=== PATIENT | female | born 1950 | race Caucasian/White ===

== ENCOUNTER → 2016-06-15 | Outpatient (CLI) | payer BC | END | disposition home or self-care (01) | LOC: LABWHC1 16:35 | PROVIDERS: ATTEND Internal Medicine Endocrinology, Diabetes & Metabolism | DX: E03.9 Hypothyroidism, unspecified (principal) | CPT/HCPCS: 36415; 84443 ==

== ENCOUNTER → 2017-02-13 | Outpatient (CLI) | payer BC | END | disposition home or self-care (01) | LOC: LABWHC1 15:33 | PROVIDERS: ATTEND Internal Medicine Endocrinology, Diabetes & Metabolism | DX: E03.8 Other specified hypothyroidism (principal) | CPT/HCPCS: 36415; 84443 ==

== ENCOUNTER → 2018-03-25 | Outpatient (CLI) | payer BC ==
--- NOTE | 2018-03-26 13:12 | MM ---
Reason for exam: screening (asymptomatic). Last mammogram was performed 2 years and 4 months ago. History: Patient is postmenopausal. Taking unspecified hormones for 3 years beginning at age 53. Physical Findings: A clinical breast exam by your physician is recommended on an annual basis and results should be correlated with mammographic findings. MG 3D Screening Mammo W/Cad Bilateral CC and MLO view(s) were taken. Prior study comparison: November 28, 2015, bilateral MG 3d screening mammo w/cad. December 09, 2009, bilateral digital screening mammogram. There are scattered fibroglandular densities. No significant changes when compared with prior studies. ASSESSMENT: Negative, BI-RAD 1 RECOMMENDATION: Routine screening mammogram of both breasts in 1 year.
== END | disposition home or self-care (01) ==
LOC: RADMAMWWP 09:44
PROVIDERS: ATTEND Family Medicine
DX: Z12.31 Encounter for screening mammogram for malignant neoplasm of breast (principal)
CPT/HCPCS: 77063; 77067

== ENCOUNTER → 2020-01-13 | Outpatient (CLI) | payer BC | END | disposition home or self-care (01) | LOC: LABWHC1 11:07 | PROVIDERS: ATTEND Family Medicine | DX: R05 Cough (principal) | CPT/HCPCS: U0003; C9803 ==

== ENCOUNTER 2020-04-11 13:31 | Emergency (ER) | payer BC, MEDICARE ==
[2020-04-11 13:35] VITALS: RESP 18
--- NOTE | 2020-04-11 13:53 | ED ---
Lower Extremity Injury HPI <Abdulaziz Jimenez - Last Filed: 04/11/20 15:30> - General Source: patient, EMS, RN notes reviewed Mode of arrival: EMS Limitations: no limitations <Michael Romeo - Last Filed: 04/11/20 15:52> - General Chief Complaint: Extremity Injury, Lower Stated Complaint: Fall Time Seen by Provider: 04/11/20 13:37 - History of Present Illness Initial Comments: this a 69-year-old female presents emergency department via EMS chief complaint of right ankle injury. Patient states she slipped on her socks in a rug down some stairs. Patient has a right ankle injury no other injuries noted no head injury no loss conscious. Patient states he looks slightly deformed and unable to move it. Patient had a prior left ankle injury no prior right ankle injuries. (Michael Romeo) - Related Data Home Medications Medication Instructions Recorded Confirmed Cyanocobalamin [Vitamin B-12 1,000 mcg SQ QMONTH 01/26/16 01/26/16 Injection] Levothyroxine Sodium [Synthroid] 75 mcg PO DAILY 01/26/16 01/26/16 Previous Rx's Medication Instructions Recorded HYDROcodone/APAP 5-325MG [[place] 5] 1 each PO Q4HR PRN #20 tab 01/26/16 Ibuprofen [Motrin] 600 mg PO Q6HR PRN #20 tab 01/26/16 Allergies Allergy/AdvReac Type Severity Reaction Status Date / Time Sulfa (Sulfonamide Allergy Rash/Hives Verified 04/11/20 13:35 Antibiotics) Review of Systems ROS Other: All systems not noted in ROS Statement are negative. <Abdulaziz Jimenez - Last Filed: 04/11/20 15:30> ROS Other: All systems not noted in ROS Statement are negative. <Michael Romeo - Last Filed: 04/11/20 15:52> ROS Statement: Those systems with pertinent positive or pertinent negative responses have been documented in the HPI. Past Medical History Past Medical History: Thyroid Disorder History of Any Multi-Drug Resistant Organisms: None Reported Past Surgical History: Tonsillectomy Past Psychological History: No Psychological Hx Reported Past Alcohol Use History: Occasional Past Drug Use History: None Reported <Michael Romeo - Last Filed: 04/11/20 15:52> General Exam Limitations: no limitations General appearance: alert, in no apparent distress Head exam: Present: atraumatic, normocephalic, normal inspection Respiratory exam: Present: normal lung sounds bilaterally. Absent: respiratory distress, wheezes, rales, rhonchi, stridor Cardiovascular Exam: Present: regular rate, normal rhythm, normal heart sounds. Absent: systolic murmur, diastolic murmur, rubs, gallop, clicks Extremities exam: Present: other (right ankle there is deformity noted, pulses equal bilaterally, moderate tenderness with palpation diffusely) <Michael Romeo - Last Filed: 04/11/20 15:52> Course <Abdulaziz Jimenez - Last Filed: 04/11/20 15:30> Vital Signs 04/11/20 04/11/20 04/11/20 13:33 14:43 15:11 Temperature 97.8 F Pulse Rate 76 80 93 Respiratory 18 18 18 Rate Blood Pressure 202/95 181/89 173/96 O2 Sat by Pulse 99 97 910 H Oximetry 04/11/20 04/11/20 04/11/20 15:12 15:17 15:22 Temperature Pulse Rate 87 74 75 Respiratory 18 18 18 Rate Blood Pressure 137/76 135/101 146/80 O2 Sat by Pulse 100 100 100 Oximetry 04/11/20 04/11/20 15:27 15:32 Temperature Pulse Rate 72 76 Respiratory 18 18 Rate Blood Pressure 149/72 150/78 O2 Sat by Pulse 100 100 Oximetry - Reevaluation(s) Reevaluation #1: 04/11/20 15:30 Supervising: I pursued [id number] evaluation was her right ankle and is sustain a both bone distal right tib-fib fracture with posterior dislocation. Patient awake alert no other injuries reported. Patient had the right ankle reduced and splinted. I did perform IV sedation with propofol. Post reduction x-ray showed much improved alignment. Orthopedics will be consulted. I do agree with the assessment and plan. The post reduction exam reveals paced be awake alert oriented 3 no neurovascular deficit to the lower extremity and right. (Abdulaziz Jimenez) Procedures - Procedural Sedation Procedural Sedation Start Time: 15:11 Procedural Sedation Stop Time: 15:32 Indications: fracture/dislocation reduction ASA Class: II Mallampati Airway Score: 2 Preparation: playground monitor applied, pulse oximeter, capnometry used, supplemental O2 applied, reversal agents at bedside, suction/airway equipment at bedside, IV secured IV Propofol Dose (mgs): 65 Complications: none Patient Tolerated Procedure: well <Abdulaziz Jimenez - Last Filed: 04/11/20 15:30> - Orthopedic Joint Reduction Joint #1 Consent Obtained: written consent Side: right Joint Reduction Location: ankle Analgesia: procedural sedation Technique Used: traction/counter-traction, direct manipulation Post-Reduction Neuro Exam: intact Post-Reduction Vascular Exam: intact Post Reduction X-Ray Obtained: Yes Post Reduction X-Ray Results: reduced Splint Applied: Yes Patient Tolerated Procedure: well, no complications - Orthopedic Splinting/Casting Injury #1 Side: right Lower Extremity Injury Location: short leg, ankle Lower Extremity Immobilizer: posterior splint, synthetic pre-padded splint <Michael Romeo - Last Filed: 04/11/20 15:52> - Procedural Sedation Presedation Evaluation: Awake alert oriented 3 with evidence of deformity to the right lower extremity lateral rotation of the right foot with respect to the tib-fib. Proximal to this no evidence of any injury. After post reduction exam reveals good motor sensory vascular findings. (Abdulaziz Jimenez) Other Medications Used: IV Dilaudid (Abdulaziz Jimenez) Medical Decision Making <Michael Romeo - Last Filed: 04/11/20 15:52> - Medical Decision Making 69-year-old female presents emergency from for fall, right ankle injury. Patient is a trimalleolar fracture the right ankle with dislocation was reduced by me and Dr. Jimenez with procedural sedation. Patient's case discussed with Soo at orthopedics on-call for Dr. Shaw. Patient may be discharged in stable condition and will follow-up in office will be provided crutches advised suturing remain nonweightbearing. (Michael Romeo) Disposition <Abdulaziz Jimenez - Last Filed: 04/11/20 15:30> Is patient prescribed a controlled substance at d/c from ED?: No Time of Disposition: 15:52 <Michael Romeo - Last Filed: 04/11/20 15:52> Clinical Impression: Closed right trimalleolar fracture Disposition: HOME SELF-CARE Condition: Stable Instructions (If sedation given, give patient instructions): Ankle Fracture (ED) Additional Instructions: Please return to the Emergency Department if symptoms worsen or any other concerns. Referrals: Yaquelin Ledesma MD [Primary Care Provider] - 1-2 days Michael Shaw DO [Doctor of Osteopathic Medicine] - 1-2 days
[2020-04-11] MEDS ORDERED: PROPOFOL 10 MG/ML 20 ML VIAL IV STA (13:55)
[2020-04-11] MEDS ORDERED: SODIUM CHLORIDE 0.9% 500 ML 500 ML IV ONE (13:55)
--- NOTE | 2020-04-11 14:02 | XR ---
EXAMINATION TYPE: XR ankle limited RT DATE OF EXAM: 04/11/2020 CLINICAL HISTORY: Slip injury with pain. TECHNIQUE: Frontal and lateral images of the right ankle are obtained. COMPARISON: None. FINDINGS: There is acute transverse displaced transverse fracture through the medial malleolus with 10 mm fracture fragment. There is acute comminuted minimally displaced fracture through the lateral m alleolus. There is acute oblique intra-articular displaced fracture through the posterior malleolus w ith 1.9 cm fracture fragment. There is posterior translation of the talus with impaction relative to the distal tibia consistent with ankle mortise disruption. Mild/moderate associated soft tissue swell ing . IMPRESSION: There is acute displaced trimalleolar fracture with mortise disruption.
[2020-04-11] MEDS ORDERED: HYDROmorphone 0.5 MG/0.5 ML SYRINGE IVP STA (14:03)
[2020-04-11] MEDS ORDERED: ONDANSETRON 4 MG/2 ML VIAL IVP STA (14:03)
--- NOTE | 2020-04-11 15:33 | XR ---
EXAMINATION TYPE: XR ankle limited RT DATE OF EXAM: 04/11/2020 CLINICAL HISTORY: Reduction of displaced fracture. TECHNIQUE: Frontal and lateral images of the right ankle are obtained. COMPARISON: Right ankle x-ray earlier today.. FINDINGS: There is redemonstration of trimalleolar fractures with improved tibiotalar articulation a fter reduction. Persistent widening of the medial aspect ankle mortise. Overlying splint material is now present. IMPRESSION: There is improved alignment of displaced trimalleolar fractures with mortise disruption after reduction and splinting.
[2020-04-11] MEDS ORDERED: ACET/COD 300 MG/30 MG STARTER PACK 6 TAB BTL PO STA (15:52)
[2020-04-11 16:05] VITALS: BP 137/80
[2020-04-11 16:36] VITALS: PULSE 72; TEMP 98.5
== END 2020-04-11 16:35 | disposition home or self-care (01) ==
LOC: EC 13:31
DX: S82.851A Displaced trimalleolar fracture of right lower leg, initial encounter for closed fracture (principal); E07.9 Disorder of thyroid, unspecified; Z79.890 Hormone replacement therapy; Z88.2 Allergy status to sulfonamides; W10.9XXA Fall (on) (from) unspecified stairs and steps, initial encounter; Y92.009 Unspecified place in unspecified non-institutional (private) residence as the place of occurrence of the external cause
CPT/HCPCS: 73600; 99283; 96374; 96375; 96361 ×2; 27818; 99152; J2405; J2704; J1170

== ENCOUNTER → 2021-08-14 | Outpatient (CLI) | payer BC ==
--- NOTE | 2021-08-16 09:37 | MM ---
Reason for exam: screening (asymptomatic). Last mammogram was performed 3 years and 5 months ago. History: Patient is postmenopausal. Taking unspecified hormones for 3 years beginning at age 53. Physical Findings: A clinical breast exam by your physician is recommended on an annual basis and results should be correlated with mammographic findings. MG 3D Screening Mammo W/Cad Bilateral CC and MLO view(s) were taken. XCCL view(s) were taken of the right breast. Prior study comparison: March 25, 2018, bilateral MG 3d screening mammo w/cad. November 28, 2015, bilateral MG 3d screening mammo w/cad. There are scattered fibroglandular densities. No significant changes when compared with prior studies. ASSESSMENT: Negative, BI-RAD 1 RECOMMENDATION: Routine screening mammogram of both breasts in 1 year.
== END | disposition home or self-care (01) ==
LOC: RADMAMWWP 09:47
PROVIDERS: ATTEND Family Medicine
DX: Z12.31 Encounter for screening mammogram for malignant neoplasm of breast (principal)
CPT/HCPCS: 77063; 77067

== ENCOUNTER → 2022-10-26 | Outpatient (CLI) | payer MEDICARE ==
--- NOTE | 2022-10-30 08:20 | MM ---
Reason for Exam: Screening (asymptomatic). Last mammogram was performed 1 year(s) and 2 month(s) ago. Patient History: Menarche at age 10. First Full-Term at age 14. Postmenopausal. Currently using Unspecified Hormone, beginning at age 53 for 3 years. Risk Values: Corinna 5 year model risk: 1.3%. NCI Lifetime model risk: 3.0%. Prior Study Comparison: 11/28/2015 Bilateral Screening Mammogram, [facility]. 03/25/2018 Bilateral Screening Mammogram, [facility]. 08/14/2021 Bilateral Screening Mammogram, [facility]. Tissue Density: The breast tissue is heterogeneously dense. This may lower the sensitivity of mammography. Findings: Analyzed By CAD. There is no suspicious group of microcalcifications or new suspicious mass in either breast. Overall Assessment: Negative, BI-RAD 1 Management: Screening Mammogram of both breasts in 1 year. . Patient should continue monthly self-breast exams. A clinical breast exam by your physician is recommended on an annual basis. This exam should not preclude additional follow-up of suspicious palpable abnormalities. Note on Corinna scores and lifetime risk: 1. A Corinna score greater than 3% is considered moderate risk. If this is the case, consider specialist referral to assess eligibility for a risk reducing agent. 2. If overall lifetime risk for the development of breast cancer is 20% or higher, the patient may qualify for future screening with alternating mammogram and breast MRI. Electronically signed and approved by: Shailesh Johnston M.D. Radiologis
== END | disposition home or self-care (01) ==
LOC: RADMAMWWP 10:27
PROVIDERS: ATTEND Family Medicine
DX: Z12.31 Encounter for screening mammogram for malignant neoplasm of breast (principal); Z78.0 Asymptomatic menopausal state
CPT/HCPCS: 77063; 77067